=== PATIENT | female | born 1940 | race Caucasian/White ===

== ENCOUNTER 2025-01-15 18:03 | Emergency (ER) | payer MEDICARE, SELFPAY ==
[2025-01-15 18:12] VITALS: BP 160/88
--- NOTE | 2025-01-15 18:13 | ED.GENMED ---
ED Provider Triage
<Cuauhtemoc Lozano PA-C - Last Filed: 01/15/25 18:14>
-
Patient seen by provider in Triage?: Seen in Triage
Attestation: A medical screening examination has been initiated by a qualified medical provider. Based on the assessment performed at this time, it has been determined that an emergent medical condition may exist and the patient has been informed
that further medical evaluation and possible additional diagnostic testing may be needed.
HPI: 84-year-old female presents with possible esophageal food obstruction. She ate lunch which included a salad and about 2 hours after eating lunch she started spitting up her saliva. She cannot tolerate water. She has a similar history of this
in the past. Spitting into a bag at triage. Vital signs are stable. Glucagon ordered
GENERAL: Alert , in no apparent distress
EYE: No visual abnormalities.
NECK: Trachea midline
ENT: No visible abnormalities.
LUNGS: No acute respiratory distress
NEUROLOGICAL: Alert and oriented
SKIN: Skin intact. No visible changes.
MUSCULOSKELETAL: Moving extremities normally
PSYCH: Normal and appropriate interaction.
This is a medical evaluation conducted in person to initiate diagnostic evaluation and provide initial therapeutics. Please see further documentation by the treating clinician.
History of Present Illness
<Cuauhtemoc Lozano PA-C - Last Filed: 01/15/25 18:14>
General
Chief Complaint: Esophageal Problem
Time Seen by Provider: 01/15/25 20:56
<Michael Cleveland MD - Last Filed: 01/16/25 03:10>
General
Source: patient
Exam Limitations: none
Nursing documentation reviewed up to this point in time: agreed with
History of Present Illness
History of Present Illness:
Patient presents to ED for evaluation secondary to sudden onset of difficulty swallowing, water/saliva, approxi-1 hour after having salad for lunch. Patient was seen at urgent care center and referred to ED for an evaluation. During the course of
observation in the waiting room, after receiving glucagon IV, patient reports spontaneous resolution of symptoms. At the time of evaluation by myself, patient is able to drink water and swallow without any hesitation or problems. Patient denies
any other associated symptoms, i.e. headache/dizziness/difficulty speaking/loss of sensation/weakness/difficulty with ambulation. Patient recalls approximate 25 years ago having had a piece of broccoli that need to be retrieved endoscopically.
Denies recent illness. Denies recent change in medications or diet.
Review of Systems
<Michael Cleveland MD - Last Filed: 01/16/25 03:10>
Review of Systems
Allergies reviewed?: Yes
All Other Systems: ROS reviewed and negative except as documented in HPI and ROS
Constitutional: Reports no symptoms
Respiratory: Reports no symptoms
Cardiac: Reports no symptoms
ABD/GI: Reports other (Difficulty swallowing)
Musculoskeletal: Reports no symptoms
Skin: Reports no symptoms
Neurological: Reports no symptoms
Phy Exam
<Michael Cleveland MD - Last Filed: 01/16/25 03:10>
Physical Exam
Physical Exam:
Physical Exam
General: no apparent distress, not acutely ill. afebrile
Head: nc/at. eomi
Neck: supple. normal range of motion.
Heart: s1/s2 regular rate and rhythm, no murmur.
Lungs: no acute respiratory distress. clear bilaterally
Abdomen: normal bowel sounds. not tender.
Neuro: alert and oriented x 3. no focal neurological deficits. normal speech.
Skin: no rash
Psychiatric: well kept. interactive and cooperative
Extremities: no edema. no calf tenderness.
Course
<Cuauhtemoc Lozano PA-C - Last Filed: 01/15/25 18:14>
Orders/Labs/Results
Orders:
Orders
01/15/25 18:13
Glucagon [GlucaGen] 1 mg IV NOW STA
01/15/25 18:19
Glucagon [GlucaGen] 1 mg .ROUTE .STK-MED ONE
Vital Signs
Initial and Last Documented VS:
Initial Vital Signs
Temp Pulse Resp BP Pulse Ox
97.7 F 99 16 160/88 97
01/15/25 18:12 01/15/25 18:12 01/15/25 18:12 01/15/25 18:12 01/15/25 18:12
Last Documented Vital Signs
Temp Pulse Resp BP Pulse Ox
97.8 F 78 18 142/78 100
01/15/25 21:26 01/15/25 21:26 01/15/25 21:26 01/15/25 21:26 01/15/25 21:26
<Michael Cleveland MD - Last Filed: 01/16/25 03:10>
Orders/Labs/Results
Orders:
Orders
01/15/25 18:13
Glucagon [GlucaGen] 1 mg IV NOW STA
01/15/25 18:19
Glucagon [GlucaGen] 1 mg .ROUTE .STK-MED ONE
Vital Signs
Initial and Last Documented VS:
Initial Vital Signs
Temp Pulse Resp BP Pulse Ox
97.7 F 99 16 160/88 97
01/15/25 18:12 01/15/25 18:12 01/15/25 18:12 01/15/25 18:12 01/15/25 18:12
Last Documented Vital Signs
Temp Pulse Resp BP Pulse Ox
97.8 F 78 18 142/78 100
01/15/25 21:26 01/15/25 21:26 01/15/25 21:26 01/15/25 21:26 01/15/25 21:26
<Michael Cleveland MD - Last Filed: 01/16/25 03:10>
MDM/Problems Addressed
MDM/Problems Addressed:
Patient without any complaints nor symptoms during evaluation by myself, with complete resolution of presenting symptoms. Patient is able to drink water independently, without any difficulties. Differential diagnosis, including esophageal
structure versus reflux versus esophagitis versus TIA discussed with patient. As patient is asymptomatic, patient feels comfortable going home at this time, with recommendation to follow-up with her primary care physician urgently for further
evaluation and treatment. Return precautions to ED provided to the patient.
<Michael Cleveland MD - Last Filed: 01/16/25 03:10>
*Critical Care Note
Total Time (30-74mins, 75-104mins- exclusive of procedures): Not Applicable
ED Attending Note
<Cuauhtemoc Lozano PA-C - Last Filed: 01/15/25 18:14>
-
Portions of this chart may have been created with voice recognition software.� Occasional wrong word or��sound alike� substitutions may have occurred due to the inherent limitations of voice recognition software.
Discharge Plan
Departure
Patient Disposition: Home (Routine Discharge)
Date of Disposition: 01/15/25
Time of Disposition: 21:18
Patient with high blood pressure during this ER visit?: Yes
Condition: Good
Discharge Problem:
Dysphagia
Instructions: Dysphagia in adults - Discharge instructions
Activity Restrictions/Additional Instructions:
As discussed, please follow up with your primary care physician for further evaluation and treatment. Please consider returning to ED with any concerning symptoms, i.e. recurrent difficulty swallowing/speech, or loss of sensation/weakness.
Interventions
Interventions:
*Risk Screen - Suicide Last Done: 01/15/25 18:12
*General Assessment Last Done: 01/15/25 18:12
*Neglect/Abuse Screening Last Done: 01/15/25 21:26
*ED COVID-19 Vaccine History Last Done: 01/15/25 18:12
*Nursing Disposition Last Done: 01/15/25 21:26
IT-Axjjfz-Wwsqpparyw Assessment Last Done: 01/15/25 21:17
ED-EENT Assessment Last Done: 01/15/25 21:17
Discharge Date and Time
Discharge Date/Time: 01/15/25 21:27
Print Language: WOLOF
[2025-01-15] MEDS: GlucaGen 1 MG IV (18:26)
[2025-01-15 21:26] VITALS: BP 142/78
== END 2025-01-15 21:27 | disposition home or self-care (01) ==
LOC: EMR 18:03
PROVIDERS: EMERGENCY PHYSICIAN Emergency Medicine; FAMILY PHYSICIAN Internal Medicine
DX: R13.10 Dysphagia, unspecified (principal)
CPT/HCPCS: 99282; 96374; J1610